=== PATIENT | female | born 1960 | race African-American/Black ===

== ENCOUNTER 2017-04-26 17:13 | Emergency (ER) | payer MEDICAID ==
[~2017-04-26] VITALS: Ht 160 cm; Wt 63.5 kg
[2017-04-26] MEDS ORDERED: Dexamethasone 4mg/ml vial IM ONE (18:45)
[2017-04-26] MEDS ORDERED: Augmentin 875mg Tab ORAL ONE (18:45)
--- NOTE | 2017-04-26 18:50 | Emergency Room Report ---
History of Present Illness General Chief Complaint: Upper Respiratory Illness Source: Patient Present Illness HPI 56 YO Female presents to the ED c/o URI symptoms x 1 week with subjective fevers , chills, body-aches, then facial swelling since yesterday, preceded by pain in the left nostril. denies congestion and reports being able to easily breathe through nose. no pain with ocular movements however reports that she can see her cheek in her visual field. denies DM, or hx of immune compromise. Denies lesions/rashes elsewhere on the body. Denies new medications or body washes or creams. Denies swelling of the lips, tongue , throat or airway. Denies wheezing , or shortness of breath. Denies recent travel, recent illness or ill contacts. denies blisters, oral lesions, or sloughing of the skin. Denies CP, Palpitations, LOC, AMS, dizziness, Changes in Vision, Sensation, paresthesias, or a sudden severe headache. Allergies: Coded Allergies: No Known Allergies (Unverified , 04/26/17) Patient History Past Medical History: see triage record Last Menstrual Period: 7 yrs ago Now: No Immunizations: UTD Reviewed Nursing Documentation: PMH: Agreed, PSxH: Agreed Nursing Documentation-PMH Past Medical History: No Stated History Review of Systems All Other Systems: negative except mentioned in HPI Physical Exam Vital Signs Date Time Temp Pulse Resp B/P (MAP) Pulse Ox O2 Delivery O2 Flow Rate FiO2 04/26/17 17:16 98.7 99 18 155/99 100 Room Air 98.8 Sp02 EP Interpretation: reviewed, normal General Appearance: alert, GCS 15, non-toxic, mild distress Head: normocephalic, atraumatic Eyes: bilateral eye normal inspection, bilateral eye PERRL, bilateral eye EOMI ENT: hearing grossly normal, normal pharynx, normal voice, TMs + canals normal , uvula midline, nasal congestion, other - Nasal and bilateral facial swelling under the eyes that is well demarcated with erythema. EOMI without pain. Neck: full range of motion, no meningismus, no bony tend Respiratory: chest non-tender, lungs clear, normal breath sounds, speaking full sentences Cardiovascular #1: regular rate, rhythm Musculoskeletal: back normal, gait/station normal, normal range of motion, non- tender Neurologic: alert, oriented x3, responsive, motor strength/tone normal, sensory intact, speech normal, grossly normal Psychiatric: judgement/insight normal Skin: warm/dry, well hydrated, rash - Nasal and bilateral facial swelling under the eyes that is well demarcated with erythema. EOMI without pain. Lymphatic: no adenopathy Medical Decision Making PA Attestation Dr. Estrella is my supervising Physician whom patient management has been discussed with. Diagnostic Impression: Primary Impression: Erysipelas Additional Impression: Upper respiratory infection Qualified Codes: J06.9 - Acute upper respiratory infection, unspecified ER Course 56 YO Female presents to the ED c/o URI symptoms x 1 week with subjective fevers , chills, body-aches, then facial swelling since yesterday, preceded by pain in the left nostril. denies congestion and reports being able to easily breathe through nose. no pain with ocular movements however reports that she can see her cheek in her visual field. denies DM, or hx of immune compromise. Denies lesions/rashes elsewhere on the body. Denies new medications or body washes or creams. Denies swelling of the lips, tongue , throat or airway. Denies wheezing , or shortness of breath. Denies recent travel, recent illness or ill contacts. denies blisters, oral lesions, or sloughing of the skin. Denies CP, Palpitations, LOC, AMS, dizziness, Changes in Vision, Sensation, paresthesias, or a sudden severe headache. Ddx considered but are not limited to URI, pneumonia, PE, strep pharyngitis, meningitis, Cellulitis, Mucor, rhinitis, allergic reaction, sinusitis just to name a few. Vital signs: Pt. is afebrile, the remaining VS are WNL H&PE are most consistent with URI- no meningeal signs, oropharynx is not involved, no evidence of bacterial infection at this time. --No evidence of acute airway compromise at this time no purulent drainage noted in the nares. ORDERS: none required at this time, the diagnosis is clinical ED INTERVENTIONS: - Augmentin PO -Benadryl PO -Decadron IM - [place] PO d/w pt that she'll be treated with oral antibiotics and to histamines. Discussed the importance of close monitoring for worsening of her symptoms and to return promptly to the emergency department if this occurs. Otherwise patient should followup with primary care doctor in approximately 3 days. DISCHARGE: At this time pt. is stable for d/c to home. Will provide printed patient care instructions, and any necessary prescriptions. Care plan and follow up instructions have been discussed with the patient prior to discharge. Last Vital Signs Date Time Temp Pulse Resp B/P (MAP) Pulse Ox O2 Delivery O2 Flow Rate FiO2 04/26/17 17:16 98.7 99 18 155/99 100 Room Air 98.8 Disposition: HOME, SELF-CARE Condition: Stable Scripts Guaifenesin/Dextromethorphan (ROBITUSSIN COUGH-CHEST DM LIQ) 237 Ml Liquid 5 ML PO Q6HR, #237 ML Prov: Jannette Yanes 04/26/17 Diphenhydramine Hcl (BENADRYL ALLERGY) 25 Mg Tablet 25 MG PO Q6HR, #20 TAB Prov: Jannette Yanes 04/26/17 Acetaminophen/Hydrocodone ([place] 7.5-325 Tablet) 1 Each Tablet 1 TAB ORAL Q6H Y for For Pain, #6 TAB 0 Refills Prov: Jannette Yanes 04/26/17 Amoxicillin/Potassium Clav 875-125* (AUGMENTIN 875-125 TABLET*) 1 Each Tablet 1 TAB ORAL TWICE A DAY for 10 Days, #20 TAB Prov: Jannette Yanes 04/26/17 Referrals: NON PHYSICIAN (PCP) Patient Instructions: Erysipelas, Upper Respiratory Infection, Adult Additional Instructions: Take medications as directed. Follow up with a Primary Care Provider in 3 days, even if your symptoms have resolved. --Please review list of primary care clinics, if you do not already have a primary care provider Return sooner to ED if new symptoms occur, or current symptoms become worse. Do not drink alcohol, drive, or operate heavy machinery while taking [place] and or Benadryl as these medications individually and together cause drowsiness. - Please note that this Emergency Department Report was dictated using [email or web address] administrative services officer technology software, occasionally this can lead to erroneous entry secondary to interpretation by the dictation equipment. Jannette Yanes Apr 26, 2017 18:50
[2017-04-26 19:00] VITALS: BP 150/90
[2017-04-26] MEDS ORDERED: Norco 5mg/325mg tab ORAL ONE (19:00)
[2017-04-26] MEDS ORDERED: NORCO1 E1 ORAL (19:23)
[2017-04-26] MEDS ORDERED: ROBITUSSIN COU237 M1 PO (19:23)
[2017-04-26] MEDS ORDERED: AUGMENTIN 875-1 EAC1 ORAL (19:23)
[2017-04-26] MEDS ORDERED: BENADRYL ALLERG25 M1 PO (19:23)
[2017-04-26 19:30] VITALS: BP 138/84
== END 2017-04-26 19:31 | disposition home or self-care (01) ==
LOC: EMR 17:30
DX: A46 Erysipelas (principal); J06.9 Acute upper respiratory infection, unspecified
CPT/HCPCS: 96372; 99284; J1100

== ENCOUNTER 2017-11-09 16:47 | Emergency (ER) | payer MEDICAID ==
[~2017-11-09] VITALS: Ht 160 cm; Wt 72.6 kg
[~2017-11-09 16:47] MED LIST: AUGMENTIN 875-1 EAC1 ORAL; BENADRYL ALLERG25 M1 PO; NORCO1 E1 ORAL; ROBITUSSIN COU237 M1 PO
[2017-11-09] MEDS ORDERED: Acetaminophen 500mg (ES) tab ORAL ONE (17:15)
--- NOTE | 2017-11-09 17:20 | Emergency Room Report ---
History of Present Illness General Chief Complaint: Lower Extremity Injury Source: Patient Present Illness HPI 57-year-old female patient presents ER complaining of right foot pain 2 days. Reports that she dropped the would handle side of knife onto her foot 2 days ago. Reports increased swelling and pain since that time. Denies hitting her head or loss consciousness. Denies bleeding. Reports pain with ambulation. Denies fever, chest pain, shortness of breath. Denies toenail injury or pain. reports has been taking and Motrin for pain, last taken at 10 AM. Allergies: Coded Allergies: No Known Allergies (Unverified , 04/26/17) Patient History Past Medical History: see triage record Reviewed Nursing Documentation: PMH: Agreed; PSxH: Agreed Nursing Documentation-PMH Past Medical History: No Stated History Review of Systems All Other Systems: negative except mentioned in HPI Physical Exam Vital Signs Date Time Temp Pulse Resp B/P (MAP) Pulse Ox O2 Delivery O2 Flow Rate FiO2 11/09/17 17:02 98.5 53 14 153/84 99 Room Air 98.4 Sp02 EP Interpretation: reviewed, normal General Appearance: well appearing, no apparent distress, alert, GCS 15, non- toxic Head: normocephalic, atraumatic Eyes: bilateral eye normal inspection, bilateral eye PERRL ENT: hearing grossly normal, normal pharynx, no angioedema, normal voice, uvula midline, moist mucus membranes Neck: full range of motion Respiratory: lungs clear, normal breath sounds, no rhonchi, no respiratory distress, no accessory muscle use, no wheezing, speaking full sentences Cardiovascular #1: regular rate, rhythm, no edema Cardiovascular #2: 2+ dorsalis pedis (R), 2+ dorsalis pedis (L) Musculoskeletal: back normal, digits/nails normal, gait/station normal, normal range of motion, no calf tenderness, Chasity's Sign negative, swelling - dorsum of the right foot, no ecchymosis, other - NVI, no TTP over malleolus, negative syndesmotic squeeze, no warmth to touch, tender - dorsum of right foot Neurologic: alert, oriented x3, responsive, motor strength/tone normal, sensory intact Psychiatric: mood/affect normal Skin: no rash Medical Decision Making PA Attestation Dr. Estrella is my supervising Physician whom patient management has been discussed with. Diagnostic Impression: Primary Impression: Foot contusion ER Course Pt. presents to the ED c/o right foot pain. Ddx considered but are not limited to fracture, sprain, strain, contusion, dislocation. No erythema, no warmth to touch, no fever, nontoxic appearing, low suspicion for septic joint. Vital signs: are WNL, pt. is afebrile Ordered X-ray and pain medication. ER COURSE Provided with pain medication. An X-ray of the right foot shows no acute fracture per the preliminary reading. Likely contusion causing pain symptoms. Splint was applied to the right foot and was checked afterwards by me showing good alignment and support with distal neurovascular functioning intact. Crutches provided. Patient instructed on RICE method: rest, ice, compression, elevation. Patient instructed on rest, ice and heat. Patient instructed to be WBAT Contact information for orthopedic urgent care provided, follow-up with urgent care if unable to followup with primary care provider and get referral to retail operations specialist. Followup with primary care provider. Discuss referral to ortho/pain management/ PT as needed. Discuss further imaging with MRI/CT as needed. DISCHARGE: -Rx provided for Tylenol for pain symptoms. At this time pt. is stable for d/c to home. Patient is resting comfortably, in no acute distress, nontoxic appearing, talking without difficulty. Will provide printed patient care instructions, and any necessary prescriptions. Patient instructed to follow with primary care provider in 3 - 5 days and to request further follow-up as needed. Care plan and follow up instructions have been discussed with the patient prior to discharge. Take medications as directed. Patient questions asked and answered. Patient reports understanding and agreement to treatment plan. ER precautions given, patient instructed to return to ER immediately for any new or worsening of symptoms. - Please note that this Emergency Department Report was dictated using [employer] java software engineer technology software, occasionally this can lead to erroneous entry secondary to interpretation by the dictation equipment. Other X-Ray Diagnostic Results Other X-Ray Diagnostic Results : X-Ray ordered: right foot # of Views/Limited Vs Complete: 3 View Indication: Pain EP Interpretation: Yes PA Xray: Interpretation reviewed, by supervising MD, and agrees with findings. Interpretation: no dislocation, no soft tissue swelling, no fractures Impression: No acute disease PA Scribe Text Gulshan Capps PA-C Last Vital Signs Date Time Temp Pulse Resp B/P (MAP) Pulse Ox O2 Delivery O2 Flow Rate FiO2 11/09/17 17:02 98.5 53 14 153/84 99 Room Air 98.4 Disposition: HOME, SELF-CARE Condition: Stable Scripts Acetaminophen* (TYLENOL EXTRA STRENGTH*) 500 Mg Tablet 500 MG ORAL Q8H PRN for Prn Headache/Temp > 101, #30 TAB 0 Refills Prov: Robert Capps 11/09/17 Patient Instructions: Foot Contusion Additional Instructions: Patient instructed to follow up with primary care provider in 3-5 days and discuss further referral to orthopedics. Patient instructed on RICE method: rest, ice, compression, elevation. Patient instructed to WBAT. Take medications as directed. Patient questions asked and answered. ER precautions given, patient instructed to return to ER immediately for any new or worsening of symptoms. Robert Capps Nov 09, 2017 17:20
[2017-11-09] MEDS ORDERED: TYLENOL EXTRA500 MG ORAL (17:53)
[2017-11-09 18:14] VITALS: BP 153/84
--- NOTE | 2017-11-10 12:00 | Diagnostic Imaging Report ---
Indication: Foot Pain Comparison: None Findings: 3 views of the right foot were obtained. No acute fractures, malalignment, erosions or periostitis are identified. Soft tissues are unremarkable. Impression: No acute findings.
== END 2017-11-09 18:16 | disposition home or self-care (01) ==
LOC: EMR 18:02
DX: S90.31XA Contusion of right foot, initial encounter (principal); W22.8XXA Striking against or struck by other objects, initial encounter; Y93.89 Activity, other specified; Y92.89 Other specified places as the place of occurrence of the external cause
CPT/HCPCS: 99283

== ENCOUNTER 2018-12-02 15:29 | Emergency (ER) | payer MEDICAID ==
[~2018-12-02] VITALS: Ht 160 cm; Wt 70.3 kg
[~2018-12-02 15:29] MED LIST changes: +TYLENOL EXTRA500 MG ORAL
[2018-12-02] MEDS ORDERED: ACYCLOVIR200 MG ORAL (15:47)
[2018-12-02] MEDS ORDERED: PREMPRO 0.625-1 EAC1 PO (15:47)
--- NOTE | 2018-12-02 15:55 | NUR ---
ED Nurse Note: Patient walked in to ER from home due to headache 10/ and N/V since last night. pt aao x4 and ambulatory. skin clean and intact. Rt conjunctiva redness noted. pt vomiting clear saliva. calm and cooperative. no acute distress noted at this time. per pt, she had pastrami sandwich last night but unsure if it was a trigger.
[2018-12-02 15:57] VITALS: BP 150/98
--- NOTE | 2018-12-02 16:15 | NUR ---
ED Nurse Note: pt went down for CT in stable condition. sent pt first prior to blood drawn due to head CT.
--- NOTE | 2018-12-02 16:18 | Emergency Room Report ---
History of Present Illness General Chief Complaint: Headache Source: Patient Present Illness HPI Patient is a 58-year-old female presents after increased right-sided eye pain. Patient reports having increased swelling and discomfort to the right eye. She states this is happened one time in the past. She reports having increased pain with eye movements. She denies any recent trauma. She reports having some increased blurring of vision. Allergies: Coded Allergies: No Known Allergies (Unverified , 04/26/17) Patient History Past Medical History: see triage record Last Menstrual Period: hystrectomy Reviewed Nursing Documentation: PMH: Agreed; PSxH: Agreed Nursing Documentation-PMH Past Medical History: No History, Except For Hx Cardiac Problems: No - Total hystrectomy Hx Hypertension: No - herpes Hx Pacemaker: No Hx Asthma: No Hx COPD: No Hx Diabetes: No Hx Cancer: No Hx Gastrointestinal Problems: No - Right rotator cuff surgery Hx Dialysis: No History Of Psychiatric Problem: No Hx Neurological Problems: No Hx Cerebrovascular Accident: No Hx Seizures: No Review of Systems Genitourinary: Reports: dysuria, frequency All Other Systems: negative except mentioned in HPI Physical Exam Vital Signs Date Time Temp Pulse Resp B/P (MAP) Pulse Ox O2 Delivery O2 Flow Rate FiO2 12/02/18 15:41 99.3 63 16 152/101 (118) 98 Room Air Sp02 EP Interpretation: reviewed, normal General Appearance: normal inspection, alert, GCS 15, mild distress Head: atraumatic Eyes: bilateral eye other - right eye lid swelling, pain with consensual light. ENT: normal ENT inspection, hearing grossly normal, normal voice Neck: normal inspection, full range of motion, supple, no bony tend Respiratory: normal inspection, lungs clear, normal breath sounds, no respiratory distress, no retraction, no wheezing Cardiovascular #1: regular rate, rhythm, no edema Gastrointestinal: normal inspection, normal bowel sounds, non tender, soft, no guarding, no hernia Genitourinary: no CVA tenderness Musculoskeletal: normal inspection, back normal, normal range of motion Neurologic: normal inspection, alert, oriented x3, responsive, land manager III-XII nml as tested, motor strength/tone normal, speech normal Psychiatric: normal inspection, judgement/insight normal, mood/affect normal Medical Decision Making Diagnostic Impression: Primary Impression: Stye external Additional Impressions: Urinary tract infection Iritis ER Course Patient presented for right eye pain. Differential diagnosis included but wasn' t limited to glaucoma, iritis, corneal abrasion, bacterial conjunctivitis, viral conjunctivitis. Because of complexity of patient's case laboratory tests and imaging studies were ordered. CT imaging of the orbits showed no evidence of muscular abnormality or mass in the orbit. Patient was noted to have an exam consistent with a lid infection. Patient was noted to have some evidence of urinary tract infection and was given prescription for Keflex. Patient was given prescription for Cyclogyl due to what appears to be some iritis. Patient was advised to follow-up with ophthalmology in 1 to 2 days. She is advised to return if worse. Patient was given prescription for pain medications and medications for symptom treatment in addition to the antibiotics. Last Vital Signs Date Time Temp Pulse Resp B/P (MAP) Pulse Ox O2 Delivery O2 Flow Rate FiO2 12/02/18 15:57 99.3 89 16 150/98 98 Room Air Status: improved Disposition: HOME, SELF-CARE Condition: Stable Scripts Hydrocodone Bit/Acetaminophen 5-325* (NORCO 5-325*) 1 Each Tablet 1 TAB ORAL Q4H PRN for For Pain, #12 TAB 0 Refills Prov: Lance Wesley MD 12/02/18 Cephalexin* (KEFLEX*) 500 Mg Capsule 500 MG ORAL EVERY 6 HOURS, #40 CAP Prov: Lance Wesley MD 12/02/18 Cyclopentolate HCl (Cyclogyl) 2 Ml Drops 2 ML OP THREE TIMES A DAY, #2 ML Prov: Lance Wesley MD 12/02/18 Lance Wesley MD Dec 02, 2018 16:18
--- NOTE | 2018-12-02 16:32 | NUR ---
ED Nurse Note: pt came back from CT scan in stable condition.
--- NOTE | 2018-12-02 16:44 | NUR ---
ED Nurse Note: blood and urine have sent to the lab.
[2018-12-02] MEDS ORDERED: Ketorolac 30mg Inj IV ONE (16:45)
[2018-12-02] MEDS ORDERED: DiphenhydrAMINE 50mg/ml Inj IVP ONE (16:45)
[2018-12-02 16:54] LABS: APPEARANCE,URINE CLEAR; BILIRUBIN, URINE NEGATIVE (NEGATIVE); GLUCOSE, URINE (UA) NEGATIVE (NEGATIVE); KETONES,URINE 1+ (NEGATIVE); LEUKOCYTE ESTERASE ,URINE 2+ (NEGATIVE); NITRITE,URINE NEGATIVE (NEGATIVE); PH,URINE 5 (4.5-8.0); PROTEIN,URINE 2+ (NEGATIVE); UROBILINOGEN,URINE 1 MG/DL (0.0-1.0)
[2018-12-02 16:55] LABS: COLOR,URINE YELLOW
[2018-12-02 16:58] LABS: BASOPHILS % (AUTO) 1.1 % (0.0-2.0); EOSINOPHILS % (AUTO) 1.1 % (0.0-3.0); HEMATOCRIT 37.6 % (37.0-47.0); HEMOGLOBIN 12.6 G/DL (12.0-16.0); MEAN CORPUSCULAR VOLUME 89 FL (80-99); MONOCYTES % (AUTO) 7.6 % (1.0-10.0); NEUTROPHILS % (AUTO) 59.2 % (45.0-75.0); PLATELET COUNT 336 K/UL (150-450); RED BLOOD COUNT 4.24 M/UL (4.20-5.40); RED CELL DISTRIBUTION WIDTH 12.9 % (11.6-14.8); WHITE BLOOD COUNT 10.8 K/UL (4.8-10.8)
[2018-12-02 17:05] LABS: ANION GAP 11 mmol/L (5-15); BLOOD UREA NITROGEN 14 mg/dL (7-18); CALCIUM 9.7 MG/DL (8.5-10.1); CARBON DIOXIDE 27 MMOL/L (21-32); CHLORIDE 107 MMOL/L (98-107); CREATININE 0.8 MG/DL (0.55-1.30); POTASSIUM 3.9 MMOL/L (3.5-5.1); SODIUM 145 MMOL/L (136-145)
--- NOTE | 2018-12-02 17:06 | Diagnostic Imaging Report ---
Indication: Orbital and maxillofacial trauma and pain Technique: Continuous helical transaxial imaging of the orbits/maxillofacial structures obtained without intravenous contrast administration. Coronal 2-D reformats were also obtained. Study obtained in a Siemens sensation [address] Automatic Exposure Control was utilized. Total Dose length Product (DLP): 368.[address] Dose Index Volume (CTDIvol): 18.1,18.79 mGy Comparison: None Findings: There is no evidence of an acute fracture. Paranasal sinuses and mastoids are clear. There is mild soft tissue swelling present in the supraorbital region and probably in the periorbital region. The orbits appear normal. There is no intraorbital hematoma. Extraocular muscles appear symmetric. Globes are intact. IMPRESSION: Soft tissue contusion suspected. No acute fracture or other significant findings [facility] has communicated the preliminary results to the Emergency Department. Their findings are largely concordant with this report. The CT scanner at [facility] is accredited by the [employer] and the scans are performed using dose optimization techniques as appropriate to a performed exam including Automatic Exposure control.
[2018-12-02 17:10] LABS: ALANINE AMINOTRANSFERASE 17 U/L (12-78); ALBUMIN/GLOBULIN RATIO 1.1 (1.0-2.7); ALKALINE PHOSPHATASE 132 U/L (46-116); ASPARTATE AMINO TRANSFERASE 16 U/L (15-37); BILIRUBIN,TOTAL 0.5 MG/DL (0.2-1.0)
[2018-12-02] MEDS ORDERED: cefTRIAXone 1 GM in NS 55 ML IVPB ONE (17:15)
[2018-12-02] MEDS ORDERED: CEPHALEXIN500 MG ORAL (18:31)
[2018-12-02] MEDS ORDERED: CYCLOGYL2 ML OP (18:31)
[2018-12-02] MEDS ORDERED: NORCO 5-325 TA1 EACH ORAL (18:31)
[2018-12-02 19:15] VITALS: BP 143/86
--- NOTE | 2018-12-02 19:15 | NUR ---
ED Nurse Note: Pt cleared by health care Provider for discharge. DC instructions/prescription was given and explained to pt and verbalized understanding of teachings. All medical deviecs such as ID band removed. Pt is AAO x4, ambulatory and left with all personal belongings.
== END 2018-12-02 19:15 | disposition home or self-care (01) ==
LOC: EMR 16:23
DX: H00.013 Hordeolum externum right eye, unspecified eyelid (principal); N39.0 Urinary tract infection, site not specified; H20.9 Unspecified iridocyclitis; Z90.710 Acquired absence of both cervix and uterus
CPT/HCPCS: 36415; 70480; 80053; 81001; 85025; 87040; 87086; 96365; 96375; J0696; J1200; Z7502; 99284